=== PATIENT | male | born 1990 | race Caucasian/White ===

== ENCOUNTER 2018-07-09 11:20 | Day surgery (SDC) | payer OTHER ==
[2018-07-09] MEDS: BUPIVACAINE 0.5% (SDV) 30 ML INJ
[~2018-07-09 11:20] MED LIST: SEVOFLURANE 15 MIN
[2018-07-09] MEDS ORDERED: SOD CHLORIDE 0.9% 1,000 ML IV (12:00)
[2018-07-09] MEDS ORDERED: LIDOCAINE 1% (MPF) 30 ML INJ (13:16)
[2018-07-09] MEDS ORDERED: BUPIVACAINE 0.25% (MPF) 30 ML INJ (13:16)
[2018-07-09] MEDS ORDERED: LIDOCAINE 2% (MDV) 20 ML INJ (13:20)
[2018-07-09] MEDS ORDERED: PROPOFOL 20 ML (13:39)
[2018-07-09] MEDS ORDERED: LIDOCAINE 2% (SDV) 5 ML INJ (13:39)
[2018-07-09] MEDS ORDERED: ETOMIDATE 20 MG INJ (13:39)
[2018-07-09] MEDS ORDERED: MIDAZOLAM 1 MG/ML 2 ML INJ (13:40)
[2018-07-09] MEDS ORDERED: ROPIVACAINE 0.5 % 30 ML VIAL (13:47)
[2018-07-09] MEDS ORDERED: FENTAnyl 50 MCG/ML VIAL (13:47)
[2018-07-09] MEDS ORDERED: DEXAMETHASONE 4 MG/ML 5 ML INJ (13:48)
[2018-07-09] MEDS: CEFAZOLIN 2 GM/50 ML (PMX) 50 ML IVPB (13:50)
[2018-07-09] MEDS ORDERED: LIDOCAINE 1% (MDV) 20 ML INJ (13:56)
[2018-07-09] MEDS ORDERED: CEFAZOLIN 1 GM INJ (13:58)
[2018-07-09] MEDS ORDERED: ONDANSETRON 4 MG INJ (14:00)
[2018-07-09] MEDS ORDERED: KETOROLAC 30 MG INJ (14:14)
[2018-07-09] MEDS: HYDROCODONE/APAP (5/325) TAB PO (15:48)
== END 2018-07-09 16:20 | disposition home or self-care (01) ==
LOC: SDS 11:20
DX: D17.23 Benign lipomatous neoplasm of skin and subcutaneous tissue of right leg (principal)
CPT/HCPCS: 14301; 88307

== ENCOUNTER 2018-09-03 06:21 | Day surgery (SDC) | payer OTHER ==
[2018-09-03] MEDS ORDERED: CEFAZOLIN 1 GM INJ (07:00)
[2018-09-03] MEDS: SOD CHLORIDE 0.9% 1,000 ML IV (07:13)
[2018-09-03] MEDS ORDERED: CEFAZOLIN 2 GM/50 ML (PMX) 50 ML IVPB (08:00)
[2018-09-03] MEDS ORDERED: SUCCINYLCHOLINE CHLORIDE 100 MG/5 ML SYG IV (10:01)
[2018-09-03] MEDS ORDERED: PROPOFOL 20 ML (10:01)
[2018-09-03] MEDS ORDERED: FENTAnyl 50 MCG/ML VIAL (10:01)
[2018-09-03] MEDS ORDERED: HYDROmorphONE 2 MG/ML SYG (10:01)
[2018-09-03] MEDS: BUPIVACAINE 0.25% (MPF) 30 ML INJ (10:30)
[2018-09-03] MEDS ORDERED: ONDANSETRON 4 MG INJ (10:36)
[2018-09-03] MEDS ORDERED: METOCLOPRAMIDE 10 MG INJ IV (11:00)
[2018-09-03] MEDS ORDERED: LABETALOL HCL 20MG INJ IV (11:00)
[2018-09-03] MEDS ORDERED: EPHEDrine SULFATE 50 MG/5 ML SYG IV (11:00)
[2018-09-03] MEDS ORDERED: HYDROmorphONE 1 MG/5 ML IV SYRINGE IV ×2 (11:00)
[2018-09-03] MEDS ORDERED: HYDROCODONE/APAP (10/325) TAB PO (11:00)
[2018-09-03] MEDS ORDERED: DIPHENHYDRAMINE 50 MG INJ IV (11:00)
[2018-09-03] MEDS ORDERED: hydrALAzine 20 MG INJ IV (11:00)
[2018-09-03] MEDS ORDERED: MEPERIDINE 25 MG INJ IV (11:00)
[2018-09-03] MEDS: ONDANSETRON 4 MG INJ IV (14:24)
== END 2018-09-03 15:20 | disposition home or self-care (01) ==
LOC: SDS 06:21
DX: D17.23 Benign lipomatous neoplasm of skin and subcutaneous tissue of right leg (principal)
CPT/HCPCS: 14301; 88307

== ENCOUNTER 2019-01-14 05:25 | Day surgery (SDC) | payer OTHER ==
[2019-01-14] MEDS ORDERED: CEFAZOLIN 2 GM/50 ML (PMX) 50 ML IVPB (06:30)
[2019-01-14] MEDS: SOD CHLORIDE 0.9% 1,000 ML IV (06:46)
[2019-01-14] MEDS ORDERED: HYDROmorphONE 1 MG/5 ML IV SYRINGE IV ×3 (08:30)
[2019-01-14] MEDS ORDERED: DIPHENHYDRAMINE 50 MG INJ IV (08:30)
[2019-01-14] MEDS ORDERED: MEPERIDINE 25 MG INJ IV (08:30)
[2019-01-14] MEDS ORDERED: ONDANSETRON 4 MG INJ IV (08:30)
[2019-01-14] MEDS ORDERED: MIDAZOLAM 1 MG/ML 2 ML INJ (08:44)
[2019-01-14] MEDS ORDERED: SUCCINYLCHOLINE CHLORIDE 100 MG/5 ML SYG IV (08:44)
[2019-01-14] MEDS ORDERED: PROPOFOL 20 ML (08:44)
[2019-01-14] MEDS ORDERED: FENTAnyl 50 MCG/ML VIAL (08:44)
[2019-01-14] MEDS ORDERED: LIDOCAINE 1% (MDV) 20 ML INJ (08:45)
[2019-01-14] MEDS ORDERED: ONDANSETRON 4 MG INJ (08:54)
[2019-01-14] MEDS ORDERED: ALBUTEROL 0.083% (NEB) 2.5 MG/3 ML AMP (09:07)
[2019-01-14] MEDS ORDERED: DEXAMETHASONE 4 MG/ML 5 ML INJ (09:07)
[2019-01-14] MEDS ORDERED: KETOROLAC 30 MG INJ (09:07)
[2019-01-14] MEDS ORDERED: CEFAZOLIN 1 GM INJ (09:20)
[2019-01-14] MEDS: BUPIVACAINE 0.25% (MPF) 30 ML INJ (09:22)
[2019-01-14] MEDS ORDERED: SUGAMMADEX SODIUM 200 MG/2 ML VIAL IV (09:30)
[2019-01-14] MEDS ORDERED: BUPIVACAINE 0.25% (MPF) 30 ML INJ (09:31)
[2019-01-14] MEDS ORDERED: MEPERIDINE 100 MG INJ (09:46)
[2019-01-14] MEDS ORDERED: LIDOCAINE 2% (SDV) 5 ML INJ (09:51)
[2019-01-14] MEDS ORDERED: ROCURONIUM 50 MG INJ (09:52)
[2019-01-14] MEDS ORDERED: HYDROCODONE/APAP (5/325) TAB PO (10:00)
== END 2019-01-14 15:11 | disposition home or self-care (01) ==
LOC: SDS 05:25
DX: D17.24 Benign lipomatous neoplasm of skin and subcutaneous tissue of left leg (principal)
CPT/HCPCS: 14301; 88307